=== PATIENT | male | born 1985 | race Caucasian/White ===

== ENCOUNTER 2025-03-24 15:05 | Emergency (ER) | payer OTHER ==
--- OUTSIDE RECORDS SUMMARY | 2025-03-24 15:08 | XMS REPORT | Continuity of Care Document ---
Author Name Unknown Address [address] [facility] [address] [place] [address] [facility] Address [address] [facility] [address] [place] [address] Care Team Providers Care Clinical Research Nurse Name Role Phone Concha Bhagat DPM Attending Clinician [phone] CONCHA BHAGAT Attending Clinician Ananda Camara Attending Clinician Unavail able Jax Admitting Clinician Unavail able Payers Payer Name Policy Type Policy Number Effective Date Expirati on Date Source [employer]ET[employer] HMO/CHOICE COMM [id number] 2005 00:00:00 [employer] - CHOICE (POS II) [id number] 2005 00:00:00 Problems Condition Name Condition Details Condition Category Status Onset Date Resolution Date Last Treatment Date Treating Clinician Comments Source Pain of left shoulder joint Pain of Left Shoulder Joint Problem Active 09-21 00:00: 00 [facility] Arthritis of left acromiocla vicular joint Arthritis of Left Acromiocla vicular Joint Problem Active 09-21 00:00: 00 [facility] Social History Social Habit Start Date Stop Date Quantity Comments Source Gender identity Mahendra aniya Rocha Sexual orientation M emorioscar Rocha Smoking Status Start Date Stop Date Source Never Smoker [facility] Tobacco [facility] consumption [facility] Medications Ordered Medication Name Filled Medication Name Start Date Stop Date Current Medication? Ordering Clinician Indication Dosage Frequency Signature (SIG) Comments Components Source meloxicam (Mobic) 15 MG tablet meloxicam (Mobic) 15 MG tablet 2-20 00:00: 00 08-27 23:59 :00 No 15mg QD Take 1 tablet by mouth 1 time each day. Shobha Rocha methylPREDN ISolone (Medrol Dospak) 4 MG tablets methylPREDN ISolone (Medrol Dospak) 4 MG tablets 06 00:00: 00 07-21 23:59 :00 No Follow schedule on package instructio ns Shobha Rocha diclofenac 3 % topical gel APPLY TO AFFECTED AREA TWICE A DAY. diclofenac 3 % topical gel APPLY TO AFFECTED AREA TWICE A DAY. No diclofenac 3 % topical gel APPLY TO AFFECTED AREA TWICE A DAY. [facility] prednisone 10 mg tablet Take 1 tablet 3 times a day by oral route with meal(s) for 10 days. prednisone 10 mg tablet Take 1 tablet 3 times a day by oral route with meal(s) for 10 days. No 1 TID prednisone 10 mg tablet Take 1 tablet 3 times a day by oral route with meal(s) for 10 days. [facility] Vital Signs Vital Name Observation Time Observation Value Comments S ource BMI (Body Mass Index) 2023-09-22 00:00:00 38 kg/m2 [facility] Height 2023-09-22 00:00:00 72 [in_i] [facility] Body Weight 2023-09-22 00:00:00 280 [lb_av] Sne[facility] albertina [facility] Procedures Procedure Date / Time Performed Performing Clinicia n Source XR, shoulder, 1 view 2023-09-22 00:00:00 [facility] Hand Surgery [facility] Knee Surgery [facility] Encounters Start Date/Time End Date/Time Encounter Type Admission Type Attending Clinicians Care Facility Care Department Encounter ID Source 2024-08-23 00:00:00 2024-11-21 22:39:46 Concha [facility] [id number] Shobha Rocha 2024-08-25 10:10:00 2024-08-25 10:46:01 Office Visit Concha Bhagat [facility] [id number] [facility] 2024-08-25 10:07:39 2024-08-25 10:46:01 Outpatient Elective NIKKIE CONCHA EOUT EOUT [id number] EOUT 2024-08-11 09:24:51 2024-08-11 10:02:26 Outpatient Elective NIKKIE CONCHA EOUT EOUT [id number] [facility] 2024-08-11 09:10:00 2024-08-11 10:02:26 Office Visit Concha Bhagat [facility] [id number] [facility] 2024-07-28 09:30:00 2024-07-28 10:21:47 Office Visit Concha Bhagat [facility] [id number] [facility] 2024-07-28 09:17:12 2024-07-28 10:21:47 Outpatient Elective NIKKIE CONCHA EOUT EOUT [id number] [facility] 2024-07-14 09:50:00 2024-07-14 10:53:48 Consult Concha Bhagat [place] [facility] [id number] [facility] 2024-07-14 09:34:58 2024-07-14 10:53:48 Outpatient Elective NIKKIE CONCHA EOUT EOUT [id number] [facility] 2024-03-01 00:00:00 2024-03-01 00:00:00 Beni Grover MD: [id number] [id number] , Ph. [phone] [place] [facility] [place] [facility] [place] [id number] [facility] 2023-09-22 00:00:00 2023-09-22 00:00:00 Beni Grover MD: [id number] [id number] , Ph. [phone] [place] [facility] [place] [facility] [place] [id number] [facility] 2023-09-16 00:00:00 2023-09-16 00:00:00 Outpatient ROGRE[facility] [id number] [facility] 2023-09-15 00:00:00 2023-09-15 00:00:00 Outpatient [facility] [id number] [facility] Notes Date/Time Note Provider Source 2024-11-21 22:39:54 [facility]2025-03-20 16:25:50* Concha Bhagat [facility] - 08/25/2024 10:10 AM CDT CHIEF COMPLAINT: PERONEAL TENDINITIS, LEFT foot HISTORY OF PRESENT ILLNESS: Patient returns today for MRI review. He relates pain is minimal with use of boot except with increased activity. Patient has scheduled PT. --- Patient has started physical therapy and remains in pneumatic fracture boot. Patient states that he has off and on pain depending on activity level. Patient states that with little activity his pain as rated at a 1/10 but with long periods of activity pain increases to a 5 or 6. ---- Patient has remained in pneumatic cam boot and states reduced pain with ambulation in boot. Patient had imaging performed. Patient relates he is able to participate in activity with use of boot, but has pain without boot. Patient feels anti-inflammatory reduce pain 50%. --- Patient states painful foot along the lateral outside of the foot and ankle , starting approximately 1 to 2 years Patient states pain mostly occurs during prolong ambulation Patient denies trauma Patient states pain currently rated 6/10 on palpation PHYSICAL EXAM OF THE LOWER EXTREMITY: Vascular (-) edema (-) ecchymosis (-) erythema Dorsal pedis pulse, bilateral - 2/4 Posterior tibial pulse, bilateral - 2/4 Capillary Refill time: within normal limits (-) varicosities (+) pedal hair growth Neurological (+) sensation with 5.07 [place] Cassius monofilament examination to the most distal lower extremity (-) tinel's sign (-) clonus present Dermatological (-) signs of soft tissue infection (-) open wounds (-) abscess (-) other primary or secondary lesions (+) normal temperature when compared to contralateral limb (+) normal color, tugor, and elasticity Musculoskeletal (+) pain on palpation, increases during resistance, peroneal tendon insertion into the 5th metatarsal base LEFT foot (+) pain on palpation, increases during resistance, peroneal tendon course (-) crepitation (-) rigid deformity 5/5 muscle strength to extrinsic pedal muscle groups (-) evidence of compartment syndrome (-) evidence of deep vein thrombosis MRI: 08/20/2024 - LEFT ankle Peroneal tendonitis at level of inferior fibula ASSESSMENT: Peroneal tendonitis LEFT foot TREATMENT PLAN: - Extensive visit discussing terminal gauger complications associated with peroneal tendon injury - Treatment - APPLIED 2 GIA bandage compression - Pain -continue meloxicam 15 mg given - weight-bearing - reduced activity and stabilize ankle with Cam boot, DISPENSED 07/14/2024 - X-rays - ORDERED 07/14/2024, REVIEWED 07/28/2024 with 3 views left foot negative x-ray - MRI -ordered 08/11/2024 reviewed - Options - discussed multiple conservative and surgical options, will attempt conservative treatments before considering surgical intervention with physical therapy, supportive shoe gear, custom orthotics - Physical therapy ordered 07/28/2024 - to be conitnued - Patient fitted with ankle brace to be worn with stable shoes Return in 2 weeks Patient advised to report to my clinic or the emergency room immediately with any questions or concerns.Patient Instructions: Discussion: A detailed discussion was provided to the patient with specific reference to etiology, pathology, alternate treatment options, and prognosis. All risks and complications (including side effects) with each treatment/medication alternative were outlined in detail including but not limited to: Pain, swelling, numbness, loss of function, loss of limb, bleeding, hematoma, scarring, failure to relieve condition, surgery, additional/revisional surgery, reflex sympathetic dystrophy, complex regional pain syndrome, reoccurrence of deformity, joint stiffness, flail toe, bone and/or soft tissue infection, blood clots, pulmonary embolism, possible , delayed or non-healing. X-rays, graphs and drawings were all used to assist with patient comprehension when appropriate. All patients questions were answered and stated they fully understood. No guarantee as to results or outcome of treatment was made. I have discussed with the patient or legally responsible person prior to obtaining consent: the risks, potential benefits and drawbacks, significant alternatives, potential for problems related to recuperation, likelihood of success, and possible results of non-treatment, and the patient or thelegally responsible person has agreed to proceed. [id number] 16:25:50Upcoming Encounters Health Maintenance Due Date Last Done Comments Lipid Panel 1985 Varicella Vaccines (1 of 2 - 13+ 2-dose series) 1998 Hepatitis B Vaccines (1 of 3 - 19+ 3-dose series) 2004 Influenza Vaccine (#1) 2024 , 03/08/2018 Annual Physical 01/19/2025 01/20/2024, 01/20/2022 DTaP/Tdap/Td Vaccines (2 - T d or Tdap) 11/06/2025 11/07/2015 HIB Vaccines Aged Out No longer eligi ble based on patient's age to complete this topic HPV Vaccines Aged Out No longer eligi ble based on patient's age to complete this topic Hepatitis A Vaccines Aged Out No long er eligible based on patient's age to complete this topic IPV Vaccines Aged Out No longer eligi ble based on patient's age to complete this topic Meningococcal Vaccine Aged Out No desiree juliet eligible based on patient's age to complete this topic Pneumococcal Vaccine: Pediatrics (0 to 5 Years) and At-Risk Patients (6 to 64 Years) Aged Out No longer eligible b ased on patient's age to complete this topic Rotavirus Vaccines Aged Out No longer eligible based on patient's age to complete this topic [id number] 16:25:50 Diagnosis Abnormal foot finding - Nadira donahue [id number] 16:25:49* Concha Bhagat DPM - 08/25/2024 10:10 AM CDT CHIEF COMPLAINT: PERONEAL TENDINITIS, LEFT foot HISTORY OF PRESENT ILLNESS: Patient returns today for MRI review. He relates pain is minimal with use of boot except with increased activity. Patient has scheduled PT. --- Patient has started physical therapy and remains in pneumatic fracture boot. Patient states that he has off and on pain depending on activity level. Patient states that with little activity his pain as rated at a 1/10 but with long periods of activity pain increases to a 5 or 6. ---- Patient has remained in pneumatic cam boot and states reduced pain with ambulation in boot. Patient had imaging performed. Patient relates he is able to participate in activity with use of boot, but has pain without boot. Patient feels anti-inflammatory reduce pain 50%. --- Patient states painful foot along the lateral outside of the foot and ankle , starting approximately 1 to 2 years Patient states pain mostly occurs during prolong ambulation Patient denies trauma Patient states pain currently rated 6/10 on palpation PHYSICAL EXAM OF THE LOWER EXTREMITY: Vascular (-) edema (-) ecchymosis (-) erythema Dorsal pedis pulse, bilateral - 2/4 Posterior tibial pulse, bilateral - 2/4 Capillary Refill time: within normal limits (-) varicosities (+) pedal hair growth Neurological (+) sensation with 5.07 [place] Cassius monofilament examination to the most distal lower extremity (-) tinel's sign (-) clonus present Dermatological (-) signs of soft tissue infection (-) open wounds (-) abscess (-) other primary or secondary lesions (+) normal temperature when compared to contralateral limb (+) normal color, tugor, and elasticity Musculoskeletal (+) pain on palpation, increases during resistance, peroneal tendon insertion into the 5th metatarsal base LEFT foot (+) pain on palpation, increases during resistance, peroneal tendon course (-) crepitation (-) rigid deformity 5/5 muscle strength to extrinsic pedal muscle groups (-) evidence of compartment syndrome (-) evidence of deep vein thrombosis MRI: 08/20/2024 - LEFT ankle Peroneal tendonitis at level of inferior fibula ASSESSMENT: Peroneal tendonitis LEFT foot TREATMENT PLAN: - Extensive visit discussing terminal gauger complications associated with peroneal tendon injury - Treatment - APPLIED 2 GIA bandage compression - Pain -continue meloxicam 15 mg given - weight-bearing - reduced activity and stabilize ankle with Cam boot, DISPENSED 07/14/2024 - X-rays - ORDERED 07/14/2024, REVIEWED 07/28/2024 with 3 views left foot negative x-ray - MRI -ordered 08/11/2024 reviewed - Options - discussed multiple conservative and surgical options, will attempt conservative treatments before considering surgical intervention with physical therapy, supportive shoe gear, custom orthotics - Physical therapy ordered 07/28/2024 - to be conitnued - Patient fitted with ankle brace to be worn with stable shoes Return in 2 weeks Patient advised to report to my clinic or the emergency room immediately with any questions or concerns.Patient Instructions: Discussion: A detailed discussion was provided to the patient with specific reference to etiology, pathology, alternate treatment options, and prognosis. All risks and complications (including side effects) with each treatment/medication alternative were outlined in detail including but not limited to: Pain, swelling, numbness, loss of function, loss of limb, bleeding, hematoma, scarring, failure to relieve condition, surgery, additional/revisional surgery, reflex sympathetic dystrophy, complex regional pain syndrome, reoccurrence of deformity, joint stiffness, flail toe, bone and/or soft tissue infection, blood clots, pulmonary embolism, possible , delayed or non-healing. X-rays, graphs and drawings were all used to assist with patient comprehension when appropriate. All patients questions were answered and stated they fully understood. No guarantee as to results or outcome of treatment was made. I have discussed with the patient or legally responsible person prior to obtaining consent: the risks, potential benefits and drawbacks, significant alternatives, potential for problems related to recuperation, likelihood of success, and possible results of non-treatment, and the patient or thelegally responsible person has agreed to proceed. [id number] 16:25:49Upcoming Encounters Health Maintenance Due Date Last Done Comments Lipid Panel 1985 Varicella Vaccines (1 of 2 - 13+ 2-dose series) 1998 Hepatitis B Vaccines (1 of 3 - 19+ 3-dose series) 2004 Influenza Vaccine (#1) 2024 9, 03/08/2018 Annual Physical 01/19/2025 01/20/2024, 01/20/2022 DTaP/Tdap/Td Vaccines (2 - T d or Tdap) 11/06/2025 11/07/2015 HIB Vaccines Aged Out No longer eligi ble based on patient's age to complete this topic HPV Vaccines Aged Out No longer eligi ble based on patient's age to complete this topic Hepatitis A Vaccines Aged Out No long er eligible based on patient's age to complete this topic IPV Vaccines Aged Out No longer eligi ble based on patient's age to complete this topic Meningococcal Vaccine Aged Out No desiree juliet eligible based on patient's age to complete this topic Pneumococcal Vaccine: Pediatrics (0 to 5 Years) and At-Risk Patients (6 to 64 Years) Aged Out No longer eligible b ased on patient's age to complete this topic Rotavirus Vaccines Aged Out No longer eligible based on patient's age to complete this topic [id number] 16:25:49 Diagnosis Abnormal foot finding - Prim godfrey [id number] 12:51:49* Concha Bhagat DPM - 08/11/2024 9:10 AM [employer] CHIEF COMPLAINT: PERONEAL TENDINITIS, LEFT foot HISTORY OF PRESENT ILLNESS: Patient has started physical therapy and remains in pneumatic fracture boot. Patient states that he has off and on pain depending on activity level. Patient states that with little activity his pain as rated at a 1/10 but with long periods of activity pain increases to a 5 or 6. ---- Patient has remained in pneumatic cam boot and states reduced pain with ambulation in boot. Patient had imaging performed. Patient relates he is able to participate in activity with use of boot, but has pain without boot. Patient feels anti-inflammatory reduce pain 50%. --- Patient states painful foot along the lateral outside of the foot and ankle , starting approximately 1 to 2 years Patient states pain mostly occurs during prolong ambulation Patient denies trauma Patient states pain currently rated 6/10 on palpation PHYSICAL EXAM OF THE LOWER EXTREMITY: Vascular (-) edema (-) ecchymosis (-) erythema Dorsal pedis pulse, bilateral - 2/4 Posterior tibial pulse, bilateral - 2/4 Capillary Refill time: within normal limits (-) varicosities (+) pedal hair growth Neurological (+) sensation with 5.07 [place] Cassius monofilament examination to the most distal lower extremity (-) tinel's sign (-) clonus present Dermatological (-) signs of soft tissue infection (-) open wounds (-) abscess (-) other primary or secondary lesions (+) normal temperature when compared to contralateral limb (+) normal color, tugor, and elasticity Musculoskeletal (+) pain on palpation, increases during resistance, peroneal tendon insertion into the 5th metatarsal base LEFT foot (+) pain on palpation, increases during resistance, peroneal tendon course (-) crepitation (-) rigid deformity 5/5 muscle strength to extrinsic pedal muscle groups (-) evidence of compartment syndrome (-) evidence of deep vein thrombosis ASSESSMENT: Peroneal tendonitis LEFT foot TREATMENT PLAN: - Extensive visit discussing terminal gauger complications associated with peroneal tendon injury - Treatment - APPLIED 2 GIA bandage compression - Pain -Medrol Dosepak completed, meloxicam 15 mg given - weight-bearing - reduced activity and stabilize ankle with Cam boot, DISPENSED 07/14/2024 - X-rays - ORDERED 07/14/2024, REVIEWED 07/28/2024 with 3 views left foot negative x-ray - MRI -ordered 08/11/2024 - Options - discussed multiple conservative and surgical options, will attempt conservative treatments before considering surgical intervention with physical therapy, supportive shoe gear, custom orthotics -Physical therapy ordered 07/28/2024 Return in 2 weeks Patient advised to report to my clinic or the emergency room immediately with any questions or concerns.Patient Instructions: Discussion: A detailed discussion was provided to the patient with specific reference to etiology, pathology, alternate treatment options, and prognosis. All risks and complications (including side effects) with each treatment/medication alternative were outlined in detail including but not limited to: Pain, swelling, numbness, loss of function, loss of limb, bleeding, hematoma, scarring, failure to relieve condition, surgery, additional/revisional surgery, reflex sympathetic dystrophy, complex regional pain syndrome, reoccurrence of deformity, joint stiffness, flail toe, bone and/or soft tissue infection, blood clots, pulmonary embolism, possible , delayed or non-healing. X-rays, graphs and drawings were all used to assist with patient comprehension when appropriate. All patients questions were answered and stated they fully understood. No guarantee as to results or outcome of treatment was made. I have discussed with the patient or legally responsible person prior to obtaining consent: the risks, potential benefits and drawbacks, significant alternatives, potential for problems related to recuperation, likelihood of success, and possible results of non-treatment, and the patient or thelegally responsible person has agreed to proceed. [facility]2025-03-06 12:51:49Upcoming Encounters Health Maintenance Due Date Last Done Comments Lipid Panel 1985 Varicella Vaccines (1 of 2 - 13+ 2-dose series) 1998 Hepatitis B Vaccines (1 of 3 - 19+ 3-dose series) 2004 Influenza Vaccine (#1) 2024 , 03/08/2018 Annual Physical 01/19/2025 01/20/2024, 01/20/2022 DTaP/Tdap/Td Vaccines (2 - T d or Tdap) 11/06/2025 11/07/2015 HIB Vaccines Aged Out No longer eligi ble based on patient's age to complete this topic HPV Vaccines Aged Out No longer eligi ble based on patient's age to complete this topic Hepatitis A Vaccines Aged Out No long er eligible based on patient's age to complete this topic IPV Vaccines Aged Out No longer eligi ble based on patient's age to complete this topic Meningococcal Vaccine Aged Out No desiree juliet eligible based on patient's age to complete this topic Pneumococcal Vaccine: Pediatrics (0 to 5 Years) and At-Risk Patients (6 to 64 Years) Aged Out No longer eligible b ased on patient's age to complete this topic Rotavirus Vaccines Aged Out No longer eligible based on patient's age to complete this topic [id number] 12:51:49 Diagnosis Abnormal foot finding - Nadira donahue [id number] 12:51:49* Conhca Bhagat DPM - 08/11/2024 9:10 AM [employer] CHIEF COMPLAINT: PERONEAL TENDINITIS, LEFT foot HISTORY OF PRESENT ILLNESS: Patient has started physical therapy and remains in pneumatic fracture boot. Patient states that he has off and on pain depending on activity level. Patient states that with little activity his pain as rated at a 1/10 but with long periods of activity pain increases to a 5 or 6. ---- Patient has remained in pneumatic cam boot and states reduced pain with ambulation in boot. Patient had imaging performed. Patient relates he is able to participate in activity with use of boot, but has pain without boot. Patient feels anti-inflammatory reduce pain 50%. --- Patient states painful foot along the lateral outside of the foot and ankle , starting approximately 1 to 2 years Patient states pain mostly occurs during prolong ambulation Patient denies trauma Patient states pain currently rated 6/10 on palpation PHYSICAL EXAM OF THE LOWER EXTREMITY: Vascular (-) edema (-) ecchymosis (-) erythema Dorsal pedis pulse, bilateral - 2/4 Posterior tibial pulse, bilateral - 2/4 Capillary Refill time: within normal limits (-) varicosities (+) pedal hair growth Neurological (+) sensation with 5.07 [place] Cassius monofilament examination to the most distal lower extremity (-) tinel's sign (-) clonus present Dermatological (-) signs of soft tissue infection (-) open wounds (-) abscess (-) other primary or secondary lesions (+) normal temperature when compared to contralateral limb (+) normal color, tugor, and elasticity Musculoskeletal (+) pain on palpation, increases during resistance, peroneal tendon insertion into the 5th metatarsal base LEFT foot (+) pain on palpation, increases during resistance, peroneal tendon course (-) crepitation (-) rigid deformity 5/5 muscle strength to extrinsic pedal muscle groups (-) evidence of compartment syndrome (-) evidence of deep vein thrombosis ASSESSMENT: Peroneal tendonitis LEFT foot TREATMENT PLAN: - Extensive visit discussing half-way complications associated with peroneal tendon injury - Treatment - APPLIED 2 GIA bandage compression - Pain -Medrol Dosepak completed, meloxicam 15 mg given - weight-bearing - reduced activity and stabilize ankle with Cam boot, DISPENSED 07/14/2024 - X-rays - ORDERED 07/14/2024, REVIEWED 07/28/2024 with 3 views left foot negative x-ray - MRI -ordered 08/11/2024 - Options - discussed multiple conservative and surgical options, will attempt conservative treatments before considering surgical intervention with physical therapy, supportive shoe gear, custom orthotics -Physical therapy ordered 07/28/2024 Return in 2 weeks Patient advised to report to my clinic or the emergency room immediately with any questions or concerns.Patient Instructions: Discussion: A detailed discussion was provided to the patient with specific reference to etiology, pathology, alternate treatment options, and prognosis. All risks and complications (including side effects) with each treatment/medication alternative were outlined in detail including but not limited to: Pain, swelling, numbness, loss of function, loss of limb, bleeding, hematoma, scarring, failure to relieve condition, surgery, additional/revisional surgery, reflex sympathetic dystrophy, complex regional pain syndrome, reoccurrence of deformity, joint stiffness, flail toe, bone and/or soft tissue infection, blood clots, pulmonary embolism, possible , delayed or non-healing. X-rays, graphs and drawings were all used to assist with patient comprehension when appropriate. All patients questions were answered and stated they fully understood. No guarantee as to results or outcome of treatment was made. I have discussed with the patient or legally responsible person prior to obtaining consent: the risks, potential benefits and drawbacks, significant alternatives, potential for problems related to recuperation, likelihood of success, and possible results of non-treatment, and the patient or thelegally responsible person has agreed to proceed. [facility]2025-03-06 12:51:49Upcoming Encounters Health Maintenance Due Date Last Done Comments Lipid Panel 1985 Varicella Vaccines (1 of 2 - 13+ 2-dose series) 1998 Hepatitis B Vaccines (1 of 3 - 19+ 3-dose series) 2004 Influenza Vaccine (#1) 2024 9, 03/08/2018 Annual Physical 01/19/2025 01/20/2024, 01/20/2022 DTaP/Tdap/Td Vaccines (2 - T d or Tdap) 11/06/2025 11/07/2015 HIB Vaccines Aged Out No longer eligi ble based on patient's age to complete this topic HPV Vaccines Aged Out No longer eligi ble based on patient's age to complete this topic Hepatitis A Vaccines Aged Out No long er eligible based on patient's age to complete this topic IPV Vaccines Aged Out No longer eligi ble based on patient's age to complete this topic Meningococcal Vaccine Aged Out No desiree juliet eligible based on patient's age to complete this topic Pneumococcal Vaccine: Pediatrics (0 to 5 Years) and At-Risk Patients (6 to 64 Years) Aged Out No longer eligible b ased on patient's age to complete this topic Rotavirus Vaccines Aged Out No longer eligible based on patient's age to complete this topic [id number] 12:51:49 Diagnosis Abnormal foot finding - Prim godfrey [facility] [id number] 13:31:06* Concha Bhagat, DPM - 07/28/2024 9:30 AM [employer] CHIEF COMPLAINT: PERONEAL TENDINITIS, LEFT foot HISTORY OF PRESENT ILLNESS: Patient has remained in pneumatic cam boot and states reduced pain with ambulation in boot. Patient had imaging performed. Patient relates he is able to participate in activity with use of boot, but has pain without boot. Patient feels anti-inflammatory reduce pain 50%. --- Patient states painful foot along the lateral outside of the foot and ankle , starting approximately 1 to 2 years Patient states pain mostly occurs during prolong ambulation Patient denies trauma Patient states pain currently rated 6/10 on palpation PHYSICAL EXAM OF THE LOWER EXTREMITY: Vascular (-) edema (-) ecchymosis (-) erythema Dorsal pedis pulse, bilateral - 2/4 Posterior tibial pulse, bilateral - 2/4 Capillary Refill time: within normal limits (-) varicosities (+) pedal hair growth Neurological (+) sensation with 5.07 [place] Cassius monofilament examination to the most distal lower extremity (-) tinel's sign (-) clonus present Dermatological (-) signs of soft tissue infection (-) open wounds (-) abscess (-) other primary or secondary lesions (+) normal temperature when compared to contralateral limb (+) normal color, tugor, and elasticity Musculoskeletal (+) pain on palpation, increases during resistance, peroneal tendon insertion into the 5th metatarsal base LEFT foot (+) pain on palpation, increases during resistance, peroneal tendon course (-) crepitation (-) rigid deformity 5/5 muscle strength to extrinsic pedal muscle groups (-) evidence of compartment syndrome (-) evidence of deep vein thrombosis ASSESSMENT: Peroneal tendonitis LEFT foot TREATMENT PLAN: - Extensive visit discussing terminal gauger complications associated with peroneal tendon injury - Treatment - APPLIED 2 GIA bandage compression - Pain -Medrol Dosepak completed, meloxicam 15 mg given - weight-bearing - reduced activity and stabilize ankle with Cam boot, DISPENSED 07/14/2024 - X-rays - ORDERED 07/14/2024, REVIEWED 07/28/2024 with 3 views left foot negative x-ray - MRI - will consider pending x-ray results - Options - discussed multiple conservative and surgical options, will attempt conservative treatments before considering surgical intervention with physical therapy, supportive shoe gear, custom orthotics -Physical therapy ordered 07/28/2024 Return in 2 weeks Patient advised to report to my clinic or the emergency room immediately with any questions or concerns.Patient Instructions: Discussion: A detailed discussion was provided to the patient with specific reference to etiology, pathology, alternate treatment options, and prognosis. All risks and complications (including side effects) with each treatment/medication alternative were outlined in detail including but not limited to: Pain, swelling, numbness, loss of function, loss of limb, bleeding, hematoma, scarring, failure to relieve condition, surgery, additional/revisional surgery, reflex sympathetic dystrophy, complex regional pain syndrome, reoccurrence of deformity, joint stiffness, flail toe, bone and/or soft tissue infection, blood clots, pulmonary embolism, possible , delayed or non-healing. X-rays, graphs and drawings were all used to assist with patient comprehension when appropriate. All patients questions were answered and stated they fully understood. No guarantee as to results or outcome of treatment was made. I have discussed with the patient or legally responsible person prior to obtaining consent: the risks, potential benefits and drawbacks, significant alternatives, potential for problems related to recuperation, likelihood of success, and possible results of non-treatment, and the patient or thelegally responsible person has agreed to proceed. [employer] [id number] 13:31:06Upcoming Encounters Health Maintenance Due Date Last Done Comments Lipid Panel 1985 Varicella Vaccines (1 of 2 - 13+ 2-dose series) 1998 Hepatitis B Vaccines (1 of 3 - 19+ 3-dose series) 2004 Influenza Vaccine (#1) 2024 9, 03/08/2018 Annual Physical 01/19/2025 01/20/2024, 01/20/2022 DTaP/Tdap/Td Vaccines (2 - T d or Tdap) 11/06/2025 11/07/2015 HIB Vaccines Aged Out No longer eligi ble based on patient's age to complete this topic HPV Vaccines Aged Out No longer eligi ble based on patient's age to complete this topic Hepatitis A Vaccines Aged Out No long er eligible based on patient's age to complete this topic IPV Vaccines Aged Out No longer eligi ble based on patient's age to complete this topic Meningococcal Vaccine Aged Out No desiree juliet eligible based on patient's age to complete this topic Pneumococcal Vaccine: Pediatrics (0 to 5 Years) and At-Risk Patients (6 to 64 Years) Aged Out No longer eligible b ased on patient's age to complete this topic Rotavirus Vaccines Aged Out No longer eligible based on patient's age to complete this topic [id number] 13:31:06 Diagnosis Abnormal foot finding - Prim godfrey [facility] [id number] 13:31:06* Concha Bhagat DPM - 07/28/2024 9:30 AM [employer] CHIEF COMPLAINT: PERONEAL TENDINITIS, LEFT foot HISTORY OF PRESENT ILLNESS: Patient has remained in pneumatic cam boot and states reduced pain with ambulation in boot. Patient had imaging performed. Patient relates he is able to participate in activity with use of boot, but has pain without boot. Patient feels anti-inflammatory reduce pain 50%. --- Patient states painful foot along the lateral outside of the foot and ankle , starting approximately 1 to 2 years Patient states pain mostly occurs during prolong ambulation Patient denies trauma Patient states pain currently rated 6/10 on palpation PHYSICAL EXAM OF THE LOWER EXTREMITY: Vascular (-) edema (-) ecchymosis (-) erythema Dorsal pedis pulse, bilateral - 2/4 Posterior tibial pulse, bilateral - 2/4 Capillary Refill time: within normal limits (-) varicosities (+) pedal hair growth Neurological (+) sensation with 5.07 [place] Cassius monofilament examination to the most distal lower extremity (-) tinel's sign (-) clonus present Dermatological (-) signs of soft tissue infection (-) open wounds (-) abscess (-) other primary or secondary lesions (+) normal temperature when compared to contralateral limb (+) normal color, tugor, and elasticity Musculoskeletal (+) pain on palpation, increases during resistance, peroneal tendon insertion into the 5th metatarsal base LEFT foot (+) pain on palpation, increases during resistance, peroneal tendon course (-) crepitation (-) rigid deformity 5/5 muscle strength to extrinsic pedal muscle groups (-) evidence of compartment syndrome (-) evidence of deep vein thrombosis ASSESSMENT: Peroneal tendonitis LEFT foot TREATMENT PLAN: - Extensive visit discussing half-way complications associated with peroneal tendon injury - Treatment - APPLIED 2 GIA bandage compression - Pain -Medrol Dosepak completed, meloxicam 15 mg given - weight-bearing - reduced activity and stabilize ankle with Cam boot, DISPENSED 07/14/2024 - X-rays - ORDERED 07/14/2024, REVIEWED 07/28/2024 with 3 views left foot negative x-ray - MRI - will consider pending x-ray results - Options - discussed multiple conservative and surgical options, will attempt conservative treatments before considering surgical intervention with physical therapy, supportive shoe gear, custom orthotics -Physical therapy ordered 07/28/2024 Return in 2 weeks Patient advised to report to my clinic or the emergency room immediately with any questions or concerns.Patient Instructions: Discussion: A detailed discussion was provided to the patient with specific reference to etiology, pathology, alternate treatment options, and prognosis. All risks and complications (including side effects) with each treatment/medication alternative were outlined in detail including but not limited to: Pain, swelling, numbness, loss of function, loss of limb, bleeding, hematoma, scarring, failure to relieve condition, surgery, additional/revisional surgery, reflex sympathetic dystrophy, complex regional pain syndrome, reoccurrence of deformity, joint stiffness, flail toe, bone and/or soft tissue infection, blood clots, pulmonary embolism, possible , delayed or non-healing. X-rays, graphs and drawings were all used to assist with patient comprehension when appropriate. All patients questions were answered and stated they fully understood. No guarantee as to results or outcome of treatment was made. I have discussed with the patient or legally responsible person prior to obtaining consent: the risks, potential benefits and drawbacks, significant alternatives, potential for problems related to recuperation, likelihood of success, and possible results of non-treatment, and the patient or thelegally responsible person has agreed to proceed. [facility]2025-02-20 13:31:06Upcoming Encounters Health Maintenance Due Date Last Done Comments Lipid Panel 1985 Varicella Vaccines (1 of 2 - 13+ 2-dose series) 1998 Hepatitis B Vaccines (1 of 3 - 19+ 3-dose series) 2004 Influenza Vaccine (#1) 2024 , 03/08/2018 Annual Physical 01/19/2025 01/20/2024, 01/20/2022 DTaP/Tdap/Td Vaccines (2 - T d or Tdap) 11/06/2025 11/07/2015 HIB Vaccines Aged Out No longer eligi ble based on patient's age to complete this topic HPV Vaccines Aged Out No longer eligi ble based on patient's age to complete this topic Hepatitis A Vaccines Aged Out No long er eligible based on patient's age to complete this topic IPV Vaccines Aged Out No longer eligi ble based on patient's age to complete this topic Meningococcal Vaccine Aged Out No desiree juliet eligible based on patient's age to complete this topic Pneumococcal Vaccine: Pediatrics (0 to 5 Years) and At-Risk Patients (6 to 64 Years) Aged Out No longer eligible b ased on patient's age to complete this topic Rotavirus Vaccines Aged Out No longer eligible based on patient's age to complete this topic [id number] 13:31:06 Diagnosis Abnormal foot finding - Prim godfrey [facility] [id number] 13:30:02* Concha Bhagat DPM - 07/14/2024 9:50 AM [employer] CHIEF COMPLAINT: PERONEAL TENDINITIS, LEFT foot HISTORY OF PRESENT ILLNESS: Patient states painful foot along the lateral outside of the foot and ankle , starting approximately 1 to 2 years Patient states pain mostly occurs during prolong ambulation Patient denies trauma Patient states pain currently rated 6/10 on palpation PHYSICAL EXAM OF THE LOWER EXTREMITY: Vascular (-) edema (-) ecchymosis (-) erythema Dorsal pedis pulse, bilateral - 2/4 Posterior tibial pulse, bilateral - 2/4 Capillary Refill time: within normal limits (-) varicosities (+) pedal hair growth Neurological (+) sensation with 5.07 [place] Cassius monofilament examination to the most distal lower extremity (-) tinel's sign (-) clonus present Dermatological (-) signs of soft tissue infection (-) open wounds (-) abscess (-) other primary or secondary lesions (+) normal temperature when compared to contralateral limb (+) normal color, tugor, and elasticity Musculoskeletal (+) pain on palpation, increases during resistance, peroneal tendon insertion into the 5th metatarsal base LEFT foot (+) pain on palpation, increases during resistance, peroneal tendon course (-) crepitation (-) rigid deformity 5/5 muscle strength to extrinsic pedal muscle groups (-) evidence of compartment syndrome (-) evidence of deep vein thrombosis ASSESSMENT: Peroneal tendonitis LEFT foot TREATMENT PLAN: - Extensive visit discussing half-way complications associated with peroneal tendon injury - Treatment - APPLIED 2 GIA bandage compression - Pain -Medrol Dosepak given - weight-bearing - reduced activity and stabilize ankle with Cam boot, DISPENSED 07/14/2024 - X-rays - ORDERED 07/14/2024 - MRI - will consider pending x-ray results - Options - discussed multiple conservative and surgical options, will attempt conservative treatments before considering surgical intervention with physical therapy, supportive shoe gear, custom orthotics Return in 2 weeks for imaging review Patient advised to report to my clinic or the emergency room immediately with any questions or concerns.Patient Instructions: Discussion: A detailed discussion was provided to the patient with specific reference to etiology, pathology, alternate treatment options, and prognosis. All risks and complications (including side effects) with each treatment/medication alternative were outlined in detail including but not limited to: Pain, swelling, numbness, loss of function, loss of limb, bleeding, hematoma, scarring, failure to relieve condition, surgery, additional/revisional surgery, reflex sympathetic dystrophy, complex regional pain syndrome, reoccurrence of deformity, joint stiffness, flail toe, bone and/or soft tissue infection, blood clots, pulmonary embolism, possible , delayed or non-healing. X-rays, graphs and drawings were all used to assist with patient comprehension when appropriate. All patients questions were answered and stated they fully understood. No guarantee as to results or outcome of treatment was made. I have discussed with the patient or legally responsible person prior to obtaining consent: the risks, potential benefits and drawbacks, significant alternatives, potential for problems related to recuperation, likelihood of success, and possible results of non-treatment, and the patient or thelegally responsible person has agreed to proceed. [facility]2025-02-06 13:30:02Upcoming Encounters Health Maintenance Due Date Last Done Comments Lipid Panel 1985 Varicella Vaccines (1 of 2 - 13+ 2-dose series) 1998 Hepatitis B Vaccines (1 of 3 - 19+ 3-dose series) 2004 Influenza Vaccine (#1) 2024 , 03/08/2018 Annual Physical 01/19/2025 01/20/2024, 01/20/2022 DTaP/Tdap/Td Vaccines (2 - T d or Tdap) 11/06/2025 11/07/2015 HIB Vaccines Aged Out No longer eligi ble based on patient's age to complete this topic HPV Vaccines Aged Out No longer eligi ble based on patient's age to complete this topic Hepatitis A Vaccines Aged Out No long er eligible based on patient's age to complete this topic IPV Vaccines Aged Out No longer eligi ble based on patient's age to complete this topic Meningococcal Vaccine Aged Out No desiree juliet eligible based on patient's age to complete this topic Pneumococcal Vaccine: Pediatrics (0 to 5 Years) and At-Risk Patients (6 to 64 Years) Aged Out No longer eligible b ased on patient's age to complete this topic Rotavirus Vaccines Aged Out No longer eligible based on patient's age to complete this topic Trevon [id number] 13:30:02 Diagnosis Abnormal foot finding - Prim godfrey Trevon Stephens
--- NOTE | 2025-03-24 16:42 | RAD REPORT ---
EXAMINATION: XR Tib Fib Right CLINICAL INDICATION: Male, 39 years old. Pain;Swelling TECHNIQUE: 2 view radiograph of the right tibia and fibula were obtained. COMPARISON: No prior exam. FINDINGS: No evidence of fracture or dislocation. Small sclerotic focus suggesting a bone island perla g the proximal right tibial shaft. Normal alignment. No evidence of arthropathy or other focal bone lesion. Soft tissues are unremarkable. IMPRESSION: No acute or significant abnormalities.
--- NOTE | 2025-03-24 18:00 | RAD REPORT ---
EXAMINATION: US RIGHT LOWER EXTREMITY VENOUS DOPPLER CLINICAL INDICATION: [facility] MAIN right leg Pain;Swelling Bed Name: [id number] TECHNIQUE: Complete bilateral duplex sonography of the RIGHT lower extremity veins was performed. The examination included compression for vein patency, color Doppler imaging and flow augmentation in response to distal compression of the distal external iliac, common femoral, femoral, popliteal, tibi al, and great and small saphenous veins. COMPARISON: No prior exam. FINDINGS: Duplex sonography testing of the veins of the RIGHT lower extremity was performed. Color flow imaging shows all veins to be compressible with [id number] color filling. Pulsatile and phasic flow is present within all lower extremity deep and superficial veins examined. IMPRESSION: No evidence of deep venous thrombosis.
--- NOTE | 2025-03-24 18:03 | RAD REPORT ---
EXAM: US Extremity Nonvascular Limited HISTORY: Pain;Swelling RIGHT COMPARISON: None TECHNIQUE: Sonographic grayscale and color flow imaging of the medial right thigh including the regio n of interest as described by the patient. FINDINGS: Lobulated septated heterogeneous ill-defined collection in the subcutaneous soft tissues in the area of concern measuring 3.0 x 3.2 x 1.2 cm, without significant adjacent hyperemia. No deeper soft tissue tracts. IMPRESSION: Heterogeneous accumulation of subcutaneous fluid measuring up to 3.2 cm, could represent a resolving hematoma or seroma. Superficial varicosity with sequelae of thrombosis of indeterminate age may also be considered.
[2025-03-24] MEDS ORDERED: IBUPROFEN 400 MG TAB ONE (18:25)
--- NOTE | 2025-03-24 18:25 | EDPHYS ---
Physician Documentation [facility] Name: Abelino Dozier Age: 39 yrs Sex: Male : 1985 Arrival Date: 03/24/2025 Time: 15:05 Bed 18 Private MD: ED Physician Jesus Hermosillo HPI: 03/24 17:00 This 39 yrs old Male presents to ER via Ambulatory with complaints of Leg Swelling. cp 17:00 The patient presents with a contusion, an injury, swelling, tenderness. The complaints cp affect the right bautista. 17:00 Context: struck by baseball. cp 17:00 Onset: The symptoms/episode began/occurred 1 week(s) ago. cp 17:00 Associated signs and symptoms: Pertinent negatives fever, numbness. cp Historical: - Allergies: 15:33 No Known Allergies; iw - Home Meds: 15:33 None [Active]; iw - PMHx: 15:33 None; iw - PSHx: 15:33 None; iw - Immunization history:: Adult Immunizations not up to date. - Infectious Disease History:: Denies. - Social history:: Smoking status: Patient denies any tobacco usage or history of. ROS: 17:10 MS/extremity: Positive for pain, swelling, tenderness, of the right lower leg, cp 17:10 Respiratory: Negative for cough, shortness of breath, wheezing, cp 17:10 Eyes: Negative for injury, pain, redness, and discharge, cp 17:10 Constitutional: Negative for body aches, chills, fever, poor PO intake, 17:10 Cardiovascular: Negative for chest pain, edema, palpitations, 17:10 Abdomen/GI: Negative for abdominal pain, vomiting, diarrhea, constipation, 17:10 Neuro: Negative for altered mental status, dizziness, headache, weakness, 17:10 All other systems are negative, Exam: 17:12 Constitutional: The patient appears in no acute distress, alert, awake, non-toxic, well cp developed, well nourished, obese, 17:12 Head/Face: Normocephalic, atraumatic. cp 17:12 Eyes: Periorbital structures: appear normal, Conjunctiva: normal, no exudate, no injection, Sclera: no appreciated abnormality, Lids and lashes: appear normal, bilaterally, 17:12 ENT: External ear(s): are unremarkable, Nose: is normal, Mouth: Lips: moist, Oral mucosa: moist, Posterior pharynx: Airway: no evidence of obstruction, patent, 17:12 Chest/axilla: Inspection: normal, 17:12 Cardiovascular: Rate: normal, 17:12 Respiratory: the patient does not display signs of respiratory distress, Respirations: normal, no use of accessory muscles, no retractions, labored breathing, is not present, Breath sounds: are clear throughout, no decreased breath sounds, no stridor, no wheezing, 17:12 Abdomen/GI: Exam negative for discomfort, distension, guarding, Inspection: obese 17:12 Musculoskeletal/extremity: Extremities: noted in the right lower leg: tenderness, hematoma noted anterior lower right tibia approximate size of baseball with mild erythema, Vital Signs: 15:32 BP 153 / 97; Pulse 74; Resp 16; Pulse Ox 96% on R/A; Weight 128.37 kg; Height 6 ft. 0 iw in. ; Pain 6/10; 17:39 BP 155 / 97; Pulse 53; Resp 19; Temp 97.7; Pulse Ox 100% on R/A; Pain 2/10; zm 18:30 BP 162 / 94; Pulse 66; Resp 15; Pulse Ox 100% on R/A; zm 15:32 Body Mass Index 38.38 (128.37 kg, 182.88 cm) iw 15:32 Pain Scale: Adult iw 17:39 Pain Scale: Adult zm [place] Coma Score: 17:39 Eye Response: spontaneous(4). Motor Response: obeys commands(6). Verbal Response: zm oriented(5). Total: 15. 18:33 Eye Response: spontaneous(4). Motor Response: obeys commands(6). Verbal Response: zm oriented(5). Total: 15. MDM: 15:31 Medical Screening Exam initiated priya 17:00 Differential diagnosis: contusion, hematoma, abscess, cellulitis, dvt. cp 18:24 Data reviewed: vital signs, nurses notes, radiologic studies, plain films, ultrasound, cp and as a result, I will discharge patient. 18:24 I considered the following discharge prescriptions or medication management in the emergency department Medications were administered in the Emergency Department. See MAR. Counseling: I had a detailed discussion with the patient and/or guardian regarding the historical points, exam findings, and any diagnostic results supporting the discharge/admit diagnosis, radiology results, to return to the emergency department if symptoms worsen or persist or if there are any questions or concerns that arise at home. Response to treatment: the patient's symptoms have mildly improved after treatment, and as a result, I will discharge patient. 03/24 15:39 Order name: US Extremity Venous Unilateral Ltd; Complete Time: 18:18 cp 03/24 15:39 Order name: XRAY Tib Fib RIGHT; Complete Time: 16:50 cp 03/24 16:51 Interpretation: Report reviewed. cp 03/24 15:39 Order name: US Extrmty Nonvasular Limited; Complete Time: 18:18 cp Administered Medications: 18:26 Drug: Ibuprofen PO 800 mg PO once Route: PO; zm 18:35 Follow up: Response: No adverse reaction zm 18:26 Drug: Clindamycin PO 300 mg PO once Route: PO; zm 18:35 Follow up: Response: No adverse reaction zm Disposition: 03/25 07:56 Co-signature as Attending Physician, Jesus Hermosillo MD I agree with the assessment and priya plan of care. Disposition Summary: 03/24/25 18:24 Discharge Ordered Notes: Location: Home cp Problem: new cp Symptoms: have improved cp Condition: Stable cp Diagnosis - Hematoma of Right Lower Leg cp - Local infection of the skin and subcutaneous tissue, unspecified cp Followup: cp - With: Gabriel Sebastian MD - When: 2 - 3 days - Reason: Worsening of condition Discharge Instructions: - Discharge Summary Sheet cp - Cellulitis, Adult cp - Hematoma cp Forms: - Medication Reconciliation Form cp - Antibiotic Education cp - Prescription Opioid Use cp - Patient Portal Instructions cp - Leadership Thank You Letter cp Prescriptions: - Anaprox DS 550 mg Oral Tablet - take 1 tablet ORAL route every 12 hours As needed; 20 tablet; Refills: 0, cp Product Selection Permitted - Clindamycin HCl 300 mg Oral Capsule - take 1 capsule ORAL route every 6 hours for 10 days; 40 capsule; Refills: 0, cp Product Selection Permitted Signatures: Dispatcher [employer] Jesus Booker MD MD cha Williams, Irene, RN RN iw Page, Corey, PA-C PA-C Shaunna Palacio RN RN zm Corrections: (The following items were deleted from the chart) 03/24 15:40 15:40 Extremity Venous Uni Ltd+US.RAD.BRZ ordered. EDMS EDMS 15:40 15:40 Tib Fib Right+RAD.RAD.BRZ ordered. EDMS EDMS 15:40 15:40 Extrmty Nonvasular Limited+US.RAD.BRZ ordered. EDMS EDMS
--- NOTE | 2025-03-24 18:25 | ER ---
Nurse's Notes [facility] Name: Abelino Dozier Age: 39 yrs Sex: Male : 1985 Arrival Date: 03/24/2025 Time: 15:05 Bed 18 Private MD: Diagnosis: Hematoma of Right Lower Leg;Local infection of the skin and subcutaneous tissue, unspecified Presentation: 03/24 15:32 Chief complaint: Patient states: got with a softball on right bautista a week ago, the area iw has been red and swollen since then. Coronavirus screen: At this time, the client does not indicate any symptoms associated with coronavirus-19. Ebola Screen: No symptoms or risks identified at this time. Initial Sepsis Screen: Does the patient meet any 2 criteria? No. Patient's initial sepsis screen is negative. Does the patient have a suspected source of infection? No. Patient's initial sepsis screen is negative. Risk Assessment: Do you want to hurt yourself or someone else? Patient reports no desire to harm self or others. Onset of symptoms was March 17, 2025. 15:32 Method Of Arrival: Ambulatory iw 15:32 Acuity: KAPIL 3 iw Historical: - Allergies: 15:33 No Known Allergies; iw - Home Meds: 15:33 None [Active]; iw - PMHx: 15:33 None; iw - PSHx: 15:33 None; iw - Immunization history:: Adult Immunizations not up to date. - Infectious Disease History:: Denies. - Social history:: Smoking status: Patient denies any tobacco usage or history of. Screenin:38 [facility] ED Fall Risk Assessment (Adult) History of falling in the last 3 months, zm including since admission No falls in past 3 months (0 pts) Confusion or Disorientation No (0 pts) Intoxicated or Sedated No (0 pts) Impaired Gait No (0 pts) Mobility Assist Device Used No (0 pt) Altered Elimination No (0 pt) Score/Fall Risk Level 0 - 2 = Low Risk Oriented to surroundings, Maintained a safe environment, Educated pt \T\ family on fall prevention, incl call for assistance when getting out of bed, Assessed \T\ reinforced patient's understanding of fall precautions, Hourly rounding (assess needs \T\ fall precautionary measures) done, Used ambulatory aids as needed (educated on \T\ assisted with), Used gait belt as appropriate. Abuse screen: Denies threats or abuse. Denies injuries from another. Nutritional screening: No deficits noted. Tuberculosis screening: No symptoms or risk factors identified. Assessment: 17:15 General: Appears in no apparent distress. comfortable, Behavior is calm, cooperative. zm Pain: Complains of pain in medial aspect of right calf Pain currently is 2 out of 10 on a pain scale. at worst was 6 out of 10 on a pain scale. Neuro: Level of Consciousness is awake, alert, obeys commands, Oriented to person, place, time, situation. Cardiovascular: Capillary refill < 3 seconds in bilateral fingers toes Patient's skin is warm and dry. Respiratory: Airway is patent Respiratory effort is even, unlabored, Respiratory pattern is regular, symmetrical. Musculoskeletal: Circulation, motion, and sensation intact. Range of motion: intact in all extremities, Swelling present in medial aspect of right calf redness Reports. 18:25 Reassessment: Patient appears in no apparent distress at this time. No changes from zm previously documented assessment. Patient and/or family updated on plan of care and expected duration. Pain level reassessed. Patient is alert, oriented x 3, equal unlabored respirations, skin warm/dry/pink. Vital Signs: 15:32 BP 153 / 97; Pulse 74; Resp 16; Pulse Ox 96% on R/A; Weight 128.37 kg; Height 6 ft. 0 iw in. ; Pain 6/10; 17:39 BP 155 / 97; Pulse 53; Resp 19; Temp 97.7; Pulse Ox 100% on R/A; Pain 2/10; zm 18:30 BP 162 / 94; Pulse 66; Resp 15; Pulse Ox 100% on R/A; zm 15:32 Body Mass Index 38.38 (128.37 kg, 182.88 cm) iw 15:32 Pain Scale: Adult iw 17:39 Pain Scale: Adult zm [place] Coma Score: 17:39 Eye Response: spontaneous(4). Motor Response: obeys commands(6). Verbal Response: zm oriented(5). Total: 15. 18:33 Eye Response: spontaneous(4). Motor Response: obeys commands(6). Verbal Response: zm oriented(5). Total: 15. ED Course: 15:07 Patient arrived in ED. mr 15:16 Jesus Rosales PA-C is PHCP. cp 15:16 Jesus Hermosillo MD is Attending Physician. cp 15:33 Triage completed. iw 15:33 Arm band placed on. iw 16:02 XRAY Tib Fib RIGHT In Process Unspecified. EDMS 17:07 Shaunna Rico, RN is Primary Nurse. zm 17:15 Patient has correct armband on for positive identification. Bed in low position. Call zm light in reach. Side rails up X 1. Provided Education on: call light use. 17:15 Client placed on continuous cardiac and pulse oximetry monitoring. NIBP monitoring zm applied. Door closed. Noise minimized. Lights dimmed. Warm blanket given. Verbal reassurance given. 17:19 US Extremity Venous Unilateral Ltd In Process Unspecified. EDMS 17:19 US Extrmty Nonvasular Limited In Process Unspecified. EDMS 18:23 Gabriel Sebastian MD is Referral Physician. cp 18:33 No provider procedures requiring assistance completed. Patient did not have IV access zm during this emergency room visit. Administered Medications: 18:26 Drug: Ibuprofen PO 800 mg PO once Route: PO; zm 18:35 Follow up: Response: No adverse reaction zm 18:26 Drug: Clindamycin PO 300 mg PO once Route: PO; zm 18:35 Follow up: Response: No adverse reaction zm Medication: 17:39 VIS not applicable for this client. zm Outcome: 18:24 Discharge ordered by MD. cp 18:33 Discharged to home ambulatory, zm 18:33 Condition: stable 18:33 Discharge instructions given to patient, Instructed on discharge instructions, follow up and referral plans. no drinking with medication, no driving heavy equipment, medication usage, safety practices, Demonstrated understanding of instructions, follow-up care, medications, Prescriptions given X 2, 18:43 Patient left the ED. zm Signatures: Dispatcher [employer] [facility] PetrPham, Reg Reg mr Merissa Barajas, RN RN Jesus Dave PA-C PA-C cp Martinez, Zaina, RN RN
[2025-03-24 23:47] VITALS: TEMP 97.7; O2SAT 100
[2025-03-24 23:48] VITALS: BP 162/94
== END 2025-03-24 18:43 | disposition home or self-care (01) ==
LOC: ER 15:05
DX: S80.11XA Contusion of right lower leg, initial encounter (principal); L08.9 Local infection of the skin and subcutaneous tissue, unspecified
CPT/HCPCS: 76882; 93971; 99284